=== PATIENT | male | born 1960 | race Caucasian/White ===

== ENCOUNTER 2018-06-18 14:24 | Observation (INO) ==
[2018-06-18] MEDS ORDERED: ACETAMINOPHEN 325 MG TABLET PO PRN (15:07)
[2018-06-18] MEDS ORDERED: ONDANSETRON 4 MG/2 ML VIAL IV PRN (15:07)
[2018-06-18] MEDS ORDERED: hydrALAZINE 20 MG/1 ML VIAL IV PRN (15:11)
[2018-06-18 17:37] LABS: Basophils % 0.3 % (0.0-0.8); Eosinophils # 0.1 10*3/uL (0.0-0.87); Eosinophils % 0.5 % (0.00-10.9); Hematocrit 44.5 VOL% (42.0-52.0); Hemoglobin 14.3 GM/DL (14.0-18.0); Immature Granulocytes % 1.2 %; Immature Granulocytes Absolute 0.12 #; Lymphocytes # 0.5 10*3/uL (1.4-4.0); Mean Corpuscular HGB Conc 32.1 GM/DL (32-36); Mean Corpuscular Hemoglobin 30 PG (27-34); Mean Corpuscular Volume 91.8 FL (87-102); Monocytes # 0.3 10*3/uL (0.11-0.8); Monocytes % 3.1 % (1.7-12.7); Neutrophils # 9.3 10*3/uL (1.4-7.4); Neutrophils % 89.9 % (38.7-73.9); Platelet Count 229 T/CUMM (130-400); Red Blood Count 4.85 MC/CUMM (3.8-5.5); Red Cell Distribution Width 12.4 % (9.3-17.3); White Blood Count 10.3 T/CUMM (4-12)
[2018-06-18] MEDS: LEVOFLOXACIN INJ 750 MG in PREMIX 1 EACH IV SCH (17:57)
[2018-06-18] MEDS: methylPREDNISolone SOD SUC 40 MG/1 ML VIAL IV SCH (17:57)
[2018-06-18 18:05] LABS: Alanine Aminotransferase 34 U/L (16-61); Albumin 3.5 G/DL (3.4-5.0); Alkaline Phosphatase 111 U/L (45-117); Aspartate Amino Transferase 12 U/L (0-37); Bilirubin,Total < 0.39 MG/DL (0.2-1.0); Blood Urea Nitrogen 19 MG/DL (7-18); Glucose 153 MG/DL (74-106); Osmolality,Calculated 281.5 MOS/KG (273-304); Potassium 3.4 MMOL/L (3.5-5.1); Sodium 139 MMOL/L (136-145); Total Protein 7.2 G/DL (6.4-8.3)
[2018-06-18 18:07] LABS: Troponin I < 0.015 NG/ML (0.00-0.045)
[2018-06-18] MEDS: DOCUSATE SODIUM 100 MG CAPSULE PO SCH (20:06)
[2018-06-18] MEDS: BENZONATATE 100 MG CAPSULE PO SCH (20:06)
[2018-06-18] MEDS: ALBUTEROL/IPRATROPIUM 3 ML NEB RESP TX SCH ×2 (21:02→23:51)
[2018-06-19 02:56] LABS: Basophils % 0.3 % (0.0-0.8); Eosinophils % 0.1 % (0.00-10.9); Hematocrit 41.9 VOL% (42.0-52.0); Hemoglobin 13.3 GM/DL (14.0-18.0); Immature Granulocytes % 1.9 %; Immature Granulocytes Absolute 0.19 #; Lymphocytes # 0.6 10*3/uL (1.4-4.0); Lymphocytes % 5.6 % (21.2-54.2); Mean Corpuscular HGB Conc 31.7 GM/DL (32-36); Mean Corpuscular Hemoglobin 29 PG (27-34); Mean Corpuscular Volume 92.3 FL (87-102); Mean Platelet Volume 10.5 FL (9.6-12.0); Monocytes # 0.4 10*3/uL (0.11-0.8); Monocytes % 3.9 % (1.7-12.7); Neutrophils # 8.7 10*3/uL (1.4-7.4); Neutrophils % 88.2 % (38.7-73.9); Platelet Count 222 T/CUMM (130-400); Red Blood Count 4.54 MC/CUMM (3.8-5.5); Red Cell Distribution Width 12.5 % (9.3-17.3); White Blood Count 9.9 T/CUMM (4-12)
[2018-06-19 03:27] LABS: Calcium 8.7 MG/DL (8.5-10.1); Osmolality,Calculated 282.4 MOS/KG (273-304); Potassium 3.9 MMOL/L (3.5-5.1)
[2018-06-19] MEDS: ALBUTEROL/IPRATROPIUM 3 ML NEB RESP TX SCH ×5 (03:49→19:50)
[2018-06-19] MEDS: methylPREDNISolone SOD SUC 40 MG/1 ML VIAL IV SCH ×2 (06:02→17:04)
[2018-06-19] MEDS: ASPIRIN 325 MG TABLET PO SCH (09:46)
[2018-06-19] MEDS: METOPROLOL TARTRATE 100 MG TABLET PO SCH (09:46)
[2018-06-19] MEDS: PANTOPRAZOLE 40 MG TABLET PO SCH (09:46)
[2018-06-19] MEDS: LOSARTAN 50 MG TABLET PO SCH (09:46)
[2018-06-19] MEDS: POTASSIUM CHLORIDE 20 MEQ TABLET PO PRN (09:46)
[2018-06-19] MEDS: BENZONATATE 100 MG CAPSULE PO SCH ×3 (09:47→20:24)
[2018-06-19] MEDS: DOCUSATE SODIUM 100 MG CAPSULE PO SCH ×2 (09:47→20:24)
[2018-06-19] MEDS: BUDESONIDE/FORMOTEROL 160-4.5 INHALER 6 GM INH SCH ×2 (14:06→20:24)
[2018-06-19] MEDS: LEVOFLOXACIN INJ 750 MG in PREMIX 1 EACH IV SCH (17:04)
[2018-06-20] MEDS: ALBUTEROL/IPRATROPIUM 3 ML NEB RESP TX SCH ×4 (01:28→11:17)
[2018-06-20] MEDS: methylPREDNISolone SOD SUC 40 MG/1 ML VIAL IV SCH (05:56)
[2018-06-20] MEDS: METOPROLOL TARTRATE 100 MG TABLET PO SCH (09:04)
[2018-06-20] MEDS: POTASSIUM CHLORIDE 20 MEQ TABLET PO PRN (09:04)
[2018-06-20] MEDS: ASPIRIN 325 MG TABLET PO SCH (09:04)
[2018-06-20] MEDS: PANTOPRAZOLE 40 MG TABLET PO SCH (09:04)
[2018-06-20] MEDS: LOSARTAN 50 MG TABLET PO SCH (09:04)
[2018-06-20] MEDS: BUDESONIDE/FORMOTEROL 160-4.5 INHALER 6 GM INH SCH (09:05)
[2018-06-20] MEDS: BENZONATATE 100 MG CAPSULE PO SCH ×2 (09:05→15:41)
[2018-06-20] MEDS: DOCUSATE SODIUM 100 MG CAPSULE PO SCH (09:06)
[2018-06-20 16:10] VITALS: BP 129/83
[2018-06-21 11:50] LABS: TB2 Ag Minus Result 0 IU/mL
== END 2018-06-20 16:12 | disposition home or self-care (01) ==
LOC: EDBD → N.5E
PROVIDERS: ADMIT Family Medicine; ATTEND Family Medicine